=== PATIENT | male | born 1980 | race Caucasian/White ===

== ENCOUNTER 2023-11-14 13:30 | Emergency (ER) | payer BC, OTHER ==
[2023-11-14] MEDS: Erythromycin Base 0.5% Ophth Oint 3.5 GM Tube EYERT ONE (14:52)
[2023-11-14] MEDS: Fluorescein 1 MG Ophth Strip EYERT ONE (14:54)
[2023-11-14] MEDS: Tetracaine HCl/PF 0.5% 4 ML Bottle EYERT ONE (14:57)
[2023-11-14] MEDS ORDERED: Bacitracin/Polymyxin B Ophth Oint 3.5 GM Tube EYERT SCH (21:00)
== END 2023-11-14 14:55 | disposition home or self-care (01) ==
LOC: VM.ED 13:30
DX: T15.01XA Foreign body in cornea, right eye, initial encounter (principal); Z79.899 Other long term (current) drug therapy; X58.XXXA Exposure to other specified factors, initial encounter
CPT/HCPCS: 65220; 99283; 99283-25; A9270-GY; J3490

== ENCOUNTER 2024-05-15 19:05 | Emergency (ER) | payer BC ==
[2024-05-15] MEDS ORDERED: Bupivacaine 0.5% 30 ML SDV INJECT PRN (19:39)
[2024-05-15] MEDS: Bupivacaine 0.5% 30 ML SDV INJECT STA (19:45)
[2024-05-15] MEDS: Lidocaine 1% 10 ML MDV INJECT ONE (19:45)
== END 2024-05-15 19:58 | disposition home or self-care (01) ==
LOC: VM.ED 19:05
DX: K08.89 Other specified disorders of teeth and supporting structures (principal)
CPT/HCPCS: 64400; 99282; 99282-25; J0665; J2003

== ENCOUNTER 2024-12-21 08:48 | Day surgery (SDC) | payer BC ==
[~2024-12-21 08:48] MED LIST: Propofol 200 MG/20 ML SDV ONE; fentaNYL 100 MCG/2 ML SDV ONE
[2024-12-21] MEDS: Lactated Ringers 1,000 ML IV SCH (09:00)
[2024-12-21] MEDS ORDERED: Propofol 200 MG/20 ML SDV ONE (11:21)
== END 2024-12-21 13:03 | disposition home or self-care (01) ==
LOC: VM.SDS 08:48
PROVIDERS: ATTEND Family Medicine
DX: D12.4 Benign neoplasm of descending colon (principal); D12.5 Benign neoplasm of sigmoid colon; K63.5 Polyp of colon; K62.1 Rectal polyp; F17.200 Nicotine dependence, unspecified, uncomplicated; Z80.0 Family history of malignant neoplasm of digestive organs; Z83.719 Family history of colon polyps, unspecified; Z79.899 Other long term (current) drug therapy
CPT/HCPCS: 45380; 45385; J2704; J3010; J7120; 00811